=== PATIENT | male | born 1985 | race Native Hawaiian/Other Pacific Islander ===

== ENCOUNTER 2018-01-02 20:39 | Emergency (ER) | payer OTHER ==
[~2018-01-02] VITALS: Ht 188 cm; Wt 100.0 kg
[~2018-01-02 20:39] MED LIST: Z.0.NO CURRENT MEDS
[2018-01-02 21:10] VITALS: BP 124/82; PULSE 96; RESP 18; TEMP 98.5; O2SAT 96
[2018-01-02] MEDS ORDERED: CLON2TAB PO (21:38)
[2018-01-02] MEDS ORDERED: IBUP-232 PO (21:38)
[2018-01-02] MEDS ORDERED: OXYC30TA PO (21:38)
[2018-01-02] MEDS ORDERED: oxyCODONE/ACETAMINOPHEN 5 MG/325 MG TAB PO ONE (22:00)
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
[2018-01-02 23:00] VITALS: BP 136/83; PULSE 85; RESP 18; O2SAT 96
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
[2018-01-02 23:10] VITALS: RESP 18
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
== END 2018-01-02 23:45 | disposition home or self-care (01) ==
LOC: PHED 20:39
DX: S13.4XXA Sprain of ligaments of cervical spine, initial encounter (principal); M54.9 Dorsalgia, unspecified; R07.81 Pleurodynia; R51 Headache; M25.572 Pain in left ankle and joints of left foot; V43.52XA Car driver injured in collision with other type car in traffic accident, initial encounter; G89.29 Other chronic pain; F17.200 Nicotine dependence, unspecified, uncomplicated
CPT/HCPCS: 70450; 71101; 72072; 72100; 72125; 73610; 99284